=== PATIENT | male | born 1950 | race Caucasian/White ===

== ENCOUNTER → 2016-12-07 | Outpatient (CLI) | payer MEDICARE, OTHER ==
[2016-12-07 09:49] LABS: IONIZED CALCIUM 4.7 MG/DL (4.5-5.3)
[2016-12-07 09:57] LABS: MEAN CORPUSCULAR HEMOGLOBIN 31.4 pg (27.0-33.0); MEAN CORPUSCULAR HGB CONC 33.5 g/dl (32.0-36.5); MEAN CORPUSCULAR VOLUME 93.8 fl (80.0-96.0); RED CELL DISTRIBUTION WIDTH 14.1 % (11.5-14.5); WHITE BLOOD COUNT 5.2 K/mm3 (4.0-10.0)
[2016-12-07 10:15] LABS: ALBUMIN 3.7 GM/DL (3.2-5.2); ALBUMIN/GLOBULIN RATIO 1.12 (1.00-1.93); BILIRUBIN,TOTAL 0.5 MG/DL (0.2-1.0); CALCIUM LEVEL 8.5 MG/DL (8.8-10.2); CREATININE FOR GFR 1.37 MG/DL (0.70-1.30); GLOMERULAR FILTRATION RATE 55.3 (>49); MAGNESIUM LEVEL 2.3 MG/DL (1.8-2.4); POTASSIUM SERUM 4.3 MEQ/L (3.5-5.1)
== END ==
LOC: M LAB 09:11
PROVIDERS: ATTEND Family Medicine
DX: I10 Essential (primary) hypertension (principal); E66.9 Obesity, unspecified; E78.5 Hyperlipidemia, unspecified

== ENCOUNTER → 2017-06-13 | Outpatient (CLI) | payer MEDICARE, OTHER | LOC: M LAB 10:14 | PROVIDERS: ATTEND Family Medicine | DX: E66.9 Obesity, unspecified (principal); N18.3 Chronic kidney disease, stage 3 (moderate); R73.09 Other abnormal glucose ==

== ENCOUNTER → 2018-08-30 | Outpatient (CLI) | payer MEDICARE, OTHER ==
[2018-08-30 11:28] LABS: APPEARANCE, URINE HAZY (CLEAR); BACTERIA, URINE AUTO NEGATIVE (NEGATIVE); BILIRUBIN, URINE AUTO NEGATIVE (NEGATIVE); BLOOD, URINE BLOOD NEGATIVE (NEGATIVE); COLOR, URINE YELLOW (YELLOW); GLUCOSE, URINE (UA) AUTO NEGATIVE (NEGATIVE); KETONE, URINE AUTO NEGATIVE (NEGATIVE); LEUKOCYTE ESTERASE, URINE AUTO NEGATIVE (NEGATIVE); MUCUS, URINE SMALL (NEGATIVE); NITRITE, URINE AUTO NEGATIVE (NEGATIVE); PROTEIN, URINE AUTO NEGATIVE (NEGATIVE); RBC, URINE AUTO 15 /HPF (0-3); SPECIFIC GRAVITY URINE AUTO 1.019 (1.002-1.035); SQUAMOUS EPITHELIAL CELL UR AU 0 /HPF (0-6); UROBILINOGEN, URINE AUTO 0.2 mg/dL (0.0-2.0); WBC, URINE AUTO 1 /HPF (0-3)
[2018-08-30 11:59] LABS: CALCIUM LEVEL 8.4 MG/DL (8.8-10.2); CHOLESTEROL RISK RATIO 3.347 (<5); CREATININE FOR GFR 1.34 MG/DL (0.70-1.30); GLOMERULAR FILTRATION RATE 56.4 (>49); POTASSIUM SERUM 4.7 MEQ/L (3.5-5.1)
== END ==
LOC: M LAB 10:59
PROVIDERS: ATTEND Family Medicine
DX: R73.03 Prediabetes (principal); E78.5 Hyperlipidemia, unspecified; N18.3 Chronic kidney disease, stage 3 (moderate)

== ENCOUNTER → 2018-11-06 | Outpatient (REF) | payer MEDICARE, OTHER ==
[2018-11-11 00:06] LABS: Ca Ox Monohydrate 95 % (.); Size 3x1x1 mm (.)
== END ==
LOC: M SMT 12:37
PROVIDERS: ATTEND Family Medicine
DX: N20.0 Calculus of kidney (principal)
CPT/HCPCS: 82360; 90732; G0009; G0463

== ENCOUNTER → 2019-09-05 | Outpatient (CLI) | payer MEDICARE, OTHER ==
[2019-09-05 12:07] LABS: APPEARANCE, URINE HAZY (CLEAR); BACTERIA, URINE AUTO NEGATIVE (NEGATIVE); BILIRUBIN, URINE AUTO NEGATIVE (NEGATIVE); BLOOD, URINE BLOOD NEGATIVE (NEGATIVE); COLOR, URINE YELLOW (YELLOW); GLUCOSE, URINE (UA) AUTO NEGATIVE (NEGATIVE); KETONE, URINE AUTO NEGATIVE (NEGATIVE); LEUKOCYTE ESTERASE, URINE AUTO NEGATIVE (NEGATIVE); MUCUS, URINE SMALL (NEGATIVE); NITRITE, URINE AUTO NEGATIVE (NEGATIVE); PROTEIN, URINE AUTO NEGATIVE (NEGATIVE); RBC, URINE AUTO 19 /HPF (0-3); SPECIFIC GRAVITY URINE AUTO 1.026 (1.002-1.035); SQUAMOUS EPITHELIAL CELL UR AU 0 /HPF (0-6); UROBILINOGEN, URINE AUTO 0.2 mg/dL (0.0-2.0); WBC, URINE AUTO 1 /HPF (0-3)
[2019-09-05 12:34] LABS: HEMOGLOBIN A1c 5.9 %
[2019-09-05 12:36] LABS: CALCIUM LEVEL 8.6 MG/DL (8.8-10.2); CHOLESTEROL RISK RATIO 3.5 (<5); CREATININE FOR GFR 1.37 MG/DL (0.70-1.30); GLOMERULAR FILTRATION RATE 54.8 (>49); POTASSIUM SERUM 4.5 MEQ/L (3.5-5.1)
[2019-09-05 12:54] LABS: MALB URINE SIEMENS 21.3 MG/L; MAU/CREAT RATIO 7.7 MCG/MG (0.0-30.0)
== END ==
LOC: M LAB 10:13
PROVIDERS: ATTEND Family Medicine
DX: R31.21 Asymptomatic microscopic hematuria (principal); R73.03 Prediabetes; E78.2 Mixed hyperlipidemia; Z12.5 Encounter for screening for malignant neoplasm of prostate; I10 Essential (primary) hypertension
CPT/HCPCS: 80048; 80061; 81001; 82043; 83036; G0103

== ENCOUNTER → 2020-05-15 | Outpatient (CLI) | payer MEDICARE, OTHER ==
[2020-05-15 11:15] LABS: HEMOGLOBIN A1c 5.8 %
[2020-05-15 11:23] LABS: ALBUMIN 3.9 GM/DL (3.2-5.2); BILIRUBIN,TOTAL 0.6 MG/DL (0.2-1.0); CALCIUM LEVEL 9.2 MG/DL (8.8-10.2); CHOLESTEROL RISK RATIO 3.109 (<5); CREATININE FOR GFR 1.44 MG/DL (0.70-1.30); GLOMERULAR FILTRATION RATE 51.8 (>49); POTASSIUM SERUM 4.3 MEQ/L (3.5-5.1); TOTAL PROTEIN 7.4 GM/DL (6.4-8.2)
[2020-05-15 11:32] LABS: TOTAL 25(OH) VITAMIN D 54.8 NG/ML (30.0-100.0)
[2020-05-15 11:35] LABS: MALB URINE SIEMENS 38.5 MG/L; MAU/CREAT RATIO 14.5 MCG/MG (0.0-30.0)
== END ==
LOC: M LAB 10:15
PROVIDERS: ATTEND Nurse Practitioner Family
DX: I10 Essential (primary) hypertension (principal); Z79.899 Other long term (current) drug therapy

== ENCOUNTER → 2020-12-26 | Outpatient (CLI) | payer MEDICARE, OTHER ==
[2020-12-26 12:02] LABS: HEMOGLOBIN A1c 5.5 %
[2020-12-26 12:08] LABS: BILIRUBIN,TOTAL 0.5 MG/DL (0.2-1.0); CALCIUM LEVEL 9.3 MG/DL (8.8-10.2); CHOLESTEROL RISK RATIO 2.937 (<5); CREATININE FOR GFR 1.43 MG/DL (0.70-1.30); POTASSIUM SERUM 4.7 MEQ/L (3.5-5.1); TOTAL PROTEIN 7.1 GM/DL (6.4-8.2)
[2020-12-26 12:18] LABS: MALB URINE SIEMENS 19.8 MG/L; MAU/CREAT RATIO 7.3 MCG/MG (0.0-30.0)
== END ==
LOC: M LAB 10:36
PROVIDERS: ATTEND Nurse Practitioner Family
DX: Z12.5 Encounter for screening for malignant neoplasm of prostate (principal); I10 Essential (primary) hypertension; R73.03 Prediabetes; E78.2 Mixed hyperlipidemia
CPT/HCPCS: 36415; 80053; 80061; 82043; 83036; G0103

== ENCOUNTER → 2021-08-03 | Outpatient (CLI) | payer MEDICARE, OTHER ==
[2021-08-03 13:23] LABS: ALBUMIN 3.8 GM/DL (3.2-5.2); BILIRUBIN,TOTAL 0.4 MG/DL (0.2-1.0); CALCIUM LEVEL 9.1 MG/DL (8.8-10.2); CHOLESTEROL RISK RATIO 3.431 (<5); CREATININE FOR GFR 1.49 MG/DL (0.70-1.30); GLOMERULAR FILTRATION RATE 49.5 (>42); POTASSIUM SERUM 4.5 MEQ/L (3.5-5.1); TOTAL PROTEIN 7.9 GM/DL (6.4-8.2)
[2021-08-03 13:50] LABS: HEMOGLOBIN A1c 5.8 %
== END ==
LOC: M LAB 09:56
PROVIDERS: ATTEND Nurse Practitioner Family
DX: I10 Essential (primary) hypertension (principal)

== ENCOUNTER → 2022-03-23 | Outpatient (CLI) | payer MEDICARE, OTHER ==
[2022-03-23 10:41] LABS: BASO % 0.2 % (0.0-1.0); EOS # 0.1 10^3/uL (0.0-0.5); EOS % 1.4 % (0.0-3.0); HEMATOCRIT 45.6 % (42.0-52.0); HEMOGLOBIN 14.7 g/dl (13.5-17.5); LYMPH # 1.3 10^3/uL (1.5-5.0); LYMPH % 26.9 % (24.0-44.0); MEAN CORPUSCULAR HEMOGLOBIN 30.9 pg (27.0-33.0); MEAN CORPUSCULAR HGB CONC 32.2 g/dl (32.0-36.5); MONO # 0.6 10^3/uL (0.0-0.8); MONO % 12.2 % (2.0-8.0); NEUTROPHILS # 2.9 10^3/uL (1.5-8.5); NEUTROPHILS % 58.7 % (36.0-66.0); PLATELET COUNT, AUTOMATED 216 10^3/uL (150-450); RED BLOOD COUNT 4.75 10^6/uL (4.30-6.10); WHITE BLOOD COUNT 4.9 10^3/uL (4.0-10.0)
[2022-03-23 11:34] LABS: ALBUMIN 3.8 GM/DL (3.2-5.2); BILIRUBIN,TOTAL 0.5 MG/DL (0.2-1.0); CALCIUM LEVEL 8.7 MG/DL (8.8-10.2); CHOLESTEROL RISK RATIO 3.292 (<5); CREATININE FOR GFR 1.55 MG/DL (0.70-1.30); FREE T4 1.04 NG/DL (0.76-1.46); GLOMERULAR FILTRATION RATE 47.3 (>42); POTASSIUM SERUM 4.9 MEQ/L (3.5-5.1); THYROID STIMULATING HORMONE 1.27 uIU/ML (0.358-3.740)
[2022-03-23 11:46] LABS: MALB URINE SIEMENS 30.7 MG/L; MAU/CREAT RATIO 10.5 MCG/MG (0.0-30.0)
[2022-03-23 11:55] LABS: HEMOGLOBIN A1c 5.9 %
== END ==
LOC: M LAB 10:01
PROVIDERS: ATTEND Physician Assistant
DX: E78.5 Hyperlipidemia, unspecified (principal)

== ENCOUNTER → 2022-12-08 | Outpatient (CLI) | payer MEDICARE, OTHER ==
[2022-12-08 10:18] LABS: HEMOGLOBIN A1c 5.7 % (4.0-6.0)
[2022-12-08 10:33] LABS: ALBUMIN 3.9 G/DL (3.2-5.2); BILIRUBIN,TOTAL 0.5 MG/DL (0.3-1.2); CALCIUM LEVEL 8.1 MG/DL (8.3-10.6); CHOLESTEROL RISK RATIO 3.48 (<5); CREATININE FOR GFR 1.54 MG/DL (0.70-1.30); GLOMERULAR FILTRATION RATE 47.5 (>42); LDL CHOLESTEROL 69.2 MG/DL (<100); POTASSIUM SERUM 4.3 MMOL/L (3.5-5.1); TOTAL PROTEIN 6.6 G/DL (5.7-8.2)
== END ==
LOC: M LAB 09:22
PROVIDERS: ATTEND Physician Assistant
DX: I10 Essential (primary) hypertension (principal)
CPT/HCPCS: 36415; 80053; 80061; 83036; G0103

== ENCOUNTER → 2025-01-30 | Outpatient (CLI) | payer MEDICARE, OTHER ==
[2025-01-30 11:20] LABS: PSA SCREENING 0.46 NG/ML (< 4.00)
[2025-01-30 11:22] LABS: MALB URINE SIEMENS 25.0 MG/L
[2025-01-30 11:35] LABS: CREATININE, URINE 355.0 MG/DL; MAU/CREAT RATIO 7.0 MCG/MG (0.0-30.0)
[2025-01-30 12:02] LABS: HEPATITIS C VIRUS ABY INDEX < 0.02 INDEX (<0.8)
== END ==
LOC: M LAB 10:02
PROVIDERS: ATTEND Student in an Organized Health Care Education/Training Program
DX: Z00.00 Encounter for general adult medical examination without abnormal findings (principal); R73.03 Prediabetes; Z12.5 Encounter for screening for malignant neoplasm of prostate
CPT/HCPCS: 36415; 82043; 86803; G0103